=== PATIENT | female | born 1965 ===

== ENCOUNTER 2021-02-24 16:18 | Emergency (ER) | payer SELFPAY ==
[~2021-02-24] VITALS: Ht 162.6 cm; Wt 55.0 kg
[2021-02-24] MEDS ORDERED: PHENYTOIN SODIUM 100MG/2ML VIAL IV ONE (16:45)
[2021-02-24 17:32] LABS: BASOPHILS % 0.6 % (0.0-2.0); EOSINOPHILS % 0.3 % (0.0-5.0); HEMATOCRIT. 33.6 % (36.0-48.0); LYMPHOCYTES % 18.8 % (20.0-50.0); MEAN CORPUSCULAR HEMOGLOBIN 25.5 pg (28.0-32.0); MEAN CORPUSCULAR VOLUME 77.8 fL (81.0-99.0); MEAN PLATELET VOLUME 6.5 fl (7.4-10.4); MONOCYTES % 7.1 % (2.0-8.0); NEUTROPHILS % 73.2 % (40.0-76.0); PLATELET 763 x1000/uL (130-400); RED BLOOD CELL COUNT 4.33 mill/uL (4.2-5.4); RED CELL DISTRIBUTION WIDTH 14.5 % (11.6-14.6)
[2021-02-24 17:36] LABS: CHLORIDE 104 mEq/L (98-107)
[2021-02-24] MEDS ORDERED: PHENYTOIN SODIUM EXTENDED 100MG CAPSULE PO ONE (18:45)
[2021-02-24 18:55] VITALS: BP 88/47
== END 2021-02-24 18:48 | disposition home or self-care (01) ==
LOC: ER 16:18
DX: G40.909 Epilepsy, unspecified, not intractable, without status epilepticus (principal); D72.829 Elevated white blood cell count, unspecified; D50.9 Iron deficiency anemia, unspecified; F12.90 Cannabis use, unspecified, uncomplicated; F17.210 Nicotine dependence, cigarettes, uncomplicated; Z91.14 Patient's other noncompliance with medication regimen
CPT/HCPCS: 36415; 71045; 80053; 83880; 84484; 85025; 93005; 99285; J1165